=== PATIENT | female | born 1965 | race Two or more races ===

== ENCOUNTER 2020-03-06 08:31 | Outpatient (CLI) | payer OTHER | END 2020-03-06 08:37 | disposition home or self-care (01) | LOC: MAMO-SONO 08:31 | PROVIDERS: ATTEND Obstetrics & Gynecology | DX: Z12.31 Encounter for screening mammogram for malignant neoplasm of breast (principal); N91.4 Secondary oligomenorrhea; D25.1 Intramural leiomyoma of uterus; N60.11 Diffuse cystic mastopathy of right breast; N60.12 Diffuse cystic mastopathy of left breast ==

== ENCOUNTER 2021-08-30 05:58 | Emergency (ER) | payer OTHER ==
[~2021-08-30] VITALS: Ht 167.6 cm; Wt 68.0 kg
[2021-08-30] MEDS ORDERED: TAGAMET HB200 MG (06:31)
[2021-08-30] MEDS ORDERED: PROZAC20 MG (06:31)
== END 2021-08-30 12:15 | disposition home or self-care (01) ==
LOC: ER 05:58
DX: K92.1 Melena (principal); R11.0 Nausea; K52.9 Noninfective gastroenteritis and colitis, unspecified

== ENCOUNTER 2021-12-04 08:58 | Outpatient (CLI) | payer OTHER ==
[~2021-12-04 08:58] MED LIST: PROZAC20 MG; TAGAMET HB200 MG
== END 2021-12-04 09:11 | disposition home or self-care (01) ==
LOC: RX STUDY 08:58
PROVIDERS: ATTEND Internal Medicine Gastroenterology
DX: R13.10 Dysphagia, unspecified (principal)

== ENCOUNTER 2022-12-22 07:56 | Emergency (ER) | payer OTHER ==
[~2022-12-22] VITALS: Ht 167.6 cm; Wt 70.3 kg
== END 2022-12-22 15:27 | disposition home or self-care (01) ==
LOC: ER 07:56
PROVIDERS: General Practice
DX: D25.9 Leiomyoma of uterus, unspecified (principal)

== ENCOUNTER 2022-12-24 01:32 | Emergency (ER) | payer OTHER ==
[~2022-12-24] VITALS: Ht 167.6 cm; Wt 71.7 kg
[2022-12-24] MEDS ORDERED: PROTONIX20 MG (01:44)
[2022-12-24] MEDS ORDERED: PEPCID AC10 MG (01:44)
[2022-12-24] MEDS ORDERED: QDOLO5 MG/1 ML (01:44)
[2022-12-25] MEDS ORDERED: LEVSIN/SL0.125 MG SL (08:10)
[2022-12-25] MEDS ORDERED: PEPCID40 MG PO (08:10)
[2022-12-25] MEDS ORDERED: INTESTINEX680 M2 PO (08:10)
[2022-12-25] MEDS ORDERED: ONDANSETRON ODT4 MG PO (08:10)
[2022-12-25] MEDS ORDERED: IMODIUM A-D2 M2 PO (08:11)
== END 2022-12-25 08:42 ==
LOC: ER 01:32
DX: K29.70 Gastritis, unspecified, without bleeding (principal); D25.9 Leiomyoma of uterus, unspecified; R16.0 Hepatomegaly, not elsewhere classified; Z20.822 Contact with and (suspected) exposure to COVID-19

== ENCOUNTER → 2022-12-27 | Outpatient (CLI) | payer OTHER ==
[~2022-12-27] MED LIST changes: +IMODIUM A-D2 M2 PO; +INTESTINEX680 M2 PO; +LEVSIN/SL0.125 MG SL; +ONDANSETRON ODT4 MG PO; +PEPCID AC10 MG; +PEPCID40 MG PO; +PROTONIX20 MG; +QDOLO5 MG/1 ML
== END | disposition home or self-care (01) ==
LOC: MRI 14:34
PROVIDERS: ATTEND Obstetrics & Gynecology
DX: D25.1 Intramural leiomyoma of uterus (principal)
CPT/HCPCS: 72197